=== PATIENT | male | born 2005 | race Caucasian/White ===

== ENCOUNTER → 2024-09-27 | Outpatient (CLI) | payer MEDICARE, SELFPAY ==
--- NOTE | 2024-09-27 10:05 | XR_ITS ---
Examination: Shoulder,right, 3 views Technique: Shoulder AP internal rotation, AP external rotation, Y view shoulder, 3 views Exam date and time :September 27, 2024 10:24 AM INDICATIONS: Right shoulder pain beginning one year ago. FINDINGS: No shoulder fracture or dislocation No AC joint separation IMPRESSION: No shoulder fracture or arthritic change
== END | disposition home or self-care (01) ==
PROVIDERS: PCP Family Medicine; Referring Provider Nurse Practitioner Family; Visit Provider Nurse Practitioner Family
DX: M25.511 Pain in right shoulder (principal)
CPT/HCPCS: 73030

== ENCOUNTER → 2024-10-20 | Outpatient (CLI) | payer MEDICARE, SELFPAY ==
--- NOTE | 2024-10-20 09:00 | XR_ITS ---
MRI shoulder, right, without contrast. Date and time: October 20, 2024 0850 hours INDICATIONS: Anterior shoulder pain with abduction of the shoulder joint clicking stiffness numbness in the shoulder 6 months Technique: Multiple axial, sagittal and coronal sections of the shoulder have been obtained. Siemens high-resolution 1.5 [employer] MRI scanner is utilized. Axial fat-suppressed sections, TR 2350, TE 18 T2-weighted coronal fat-saturated images, TR 3500, TE 7100 T1-weighted coronal images, TR 500, TE 15 T2-weighted sagittal fat-saturated images, TR 3500, TE 57 T1-weighted sagittal sections, TR 504, TE 13. Findings: Supraspinatus tendon insertion is intact. Infraspinatus tendon insertion is intact. Subscapularis insertion is intact. Subscapularis bursa is not seen. Long head of the biceps is in the bicipital groove. No definite tear of the biceps superior labral anchor is seen. Retraction of the musculotendinous junction of the rotator cuff is not seen . Tendinosis pattern is mild. Distance between the acromium and humeral head is 4.3 mm Atrophy of the supraspinatus muscle is not seen. Atrophy of the infraspinatus muscle is not seen. Sagittal sections demonstrate a horizontal acromion. Acromioclavicular joint demonstrates no significant arthritic change. Osacromiale is not identified. No labral tears. Bony glenoid fossa on the sagittal sections does not demonstrate osseous defect. Occult fracture or area of avascular necrosis is not seen. Acromioclavicular joint separation is not visible. Defect in the posterolateral margin of the humeral head is not seen Impression: Rotator cuff and labral margins appear intact Moderate rotator cuff impingement syndrome
== END | disposition home or self-care (01) ==
PROVIDERS: PCP Student in an Organized Health Care Education/Training Program; Referring Provider Student in an Organized Health Care Education/Training Program; Visit Provider Student in an Organized Health Care Education/Training Program
DX: M75.101 Unspecified rotator cuff tear or rupture of right shoulder, not specified as traumatic (principal)
CPT/HCPCS: 73221